=== PATIENT | male | born 1960 | race African-American/Black ===

== ENCOUNTER 2024-03-12 05:45 | Observation (INO) | payer OTHER ==
[2024-03-10 09:20] LABS: BASOPHILS # (AUTO) 0.07 K/uL (0.00-0.20); BASOPHILS % (AUTO) 0.8 % (0.0-5.0); EOSINOPHILS # (AUTO) 0.33 K/uL (0.00-0.70); EOSINOPHILS % (AUTO) 3.6 % (0.0-8.0); HEMATOCRIT 38.4 % (42-54); IMMATURE GRANULOCYTE ABSOLUTE 0.05 K/uL (0-1); LYMPHOCYTES # (AUTO) 2.8 K/uL (1.0-4.8); LYMPHOCYTES % (AUTO) 30.4 % (21.0-51.0); MEAN CORPUSCULAR HEMOGLOBIN 31.3 pg (27.0-33.0); MEAN CORPUSCULAR HGB CONC 34.1 g/dL (32.0-36.0); MEAN CORPUSCULAR VOLUME 91.9 fL (79-99); MONOCYTES # (AUTO) 0.7 K/uL (0.1-1.0); MONOCYTES % (AUTO) 7.5 % (3.0-13.0); NEUTROPHILS # (AUTO) 5.2 K/uL (1.8-7.7); NEUTROPHILS % (AUTO) 57.2 % (40.0-77.0); PLATELET COUNT (AUTO) 162 K/uL (130-400); RED BLOOD CELL COUNT(AUTO) 4.18 MIL/uL (4.50-6.20); RED CELL DISTRIBUTION WIDTH 15.2 % (11.0-15.5); WHITE BLOOD COUNT (AUTO) 9.1 K/uL (4.8-10.8)
[2024-03-10 09:29] LABS: CREATININE 1.4 mg/dL (0.5-1.3); POTASSIUM 4.2 mmol/L (3.5-5.1)
[2024-03-10 09:30] LABS: INR 1.02 (0.85-1.15)
[2024-03-10 09:31] LABS: PARTIAL THROMBOPLASTIN TIME 31.1 SEC (26.3-35.5)
[2024-03-10 10:01] VITALS: BP 155/67; PULSE 62; RESP 16
[~2024-03-12] VITALS: Ht 180.3 cm; Wt 153.8 kg
[2024-03-12] VITALS (25 sets, daily range): BP systolic 118–176; BP diastolic 57–104; PULSE 57–79; RESP 12–20; O2SAT 98–100
[~2024-03-12 05:45] MED LIST: AEC81 PO; APIX5TAB PO; ATOR10 PO; DRON400T7 PO; FURO20TA4 PO; GARLIQUE PO; HYDR-4068 PO; LOSA50TA64 PO; METF-444 PO; METH-387 PO; METO25TA6 PO; MULT1CAP57 PO; SPIR25TA6 PO; TADA5TAB13 PO; TERA10CA4 PO
[2024-03-12] MEDS: 0.9%NACL 1000ML 1,000 ML IV ONE (06:22)
[2024-03-12] MEDS ORDERED: MIDAZOLAM HCL 1 MG/ML 2ML VIAL ONE (06:55)
[2024-03-12] MEDS ORDERED: PROPOFOL 10 MG/ML 20ML VIAL IV ONE ×2 (06:55→07:50)
[2024-03-12] MEDS ORDERED: ROCURONIUM BROMIDE 10MG/1ML 5ML VL ONE (06:56)
[2024-03-12] MEDS ORDERED: FENTANYL CITRATE PF 50 MCG/1 ML 2ML VIAL ONE ×3 (06:56→12:40)
[2024-03-12] MEDS ORDERED: HEPARIN 10,000 UNIT/10ML (1,000 UNIT/ML) VIAL ONE ×2 (07:21→08:40)
[2024-03-12] MEDS ORDERED: LIDOCAINE HCL 1% 20 ML VIAL ONE (07:21)
[2024-03-12] MEDS ORDERED: PHENYLEPHRINE HCL 10 MG/ML 1ML VIAL IV ONE ×2 (07:25→11:05)
[2024-03-12] MEDS ORDERED: PROTAMINE SULFATE 10 MG/ML 5 ML VIAL ONE (11:21)
[2024-03-12] MEDS ORDERED: EPHEDRINE SULFATE 50 MG/ML AMPULE ONE (12:20)
[2024-03-12] MEDS ORDERED: ONDANSETRON 4MG INJ ONE (12:40)
[2024-03-12] MEDS ORDERED: SUGAMMADEX SODIUM 200 MG/2 ML VIAL IV ONE (12:43)
[2024-03-12] MEDS: ONDANSETRON 4MG INJ ONE (13:45)
[2024-03-12] MEDS: MEPERIDINE-PF 25 MG/ML SYG ONE (13:46)
[2024-03-12] MEDS ORDERED: HYDROCODONE/ACETAMINOPHEN 10/325 MG TAB PO PRN (15:00)
[2024-03-12] MEDS: SUCRALFATE 1 GM TABLET PO SCH (15:47)
[2024-03-12] MEDS: PANTOPRAZOLE 40 MG TAB DR PO ONE (15:47)
[2024-03-12] MEDS: HYDRALAZINE 20MG/ML VIAL IV PRN (17:08)
[2024-03-12] MEDS: ATORVASTATIN 20 MG TABLET PO SCH (20:08)
[2024-03-12] MEDS: ASPIRIN 81 MG EC TAB PO SCH (20:09)
[2024-03-12] MEDS: APIXABAN 5 MG TABLET PO SCH (20:09)
[2024-03-12] MEDS: DRONEDARONE HYDROCHLORIDE 400 MG TABLET PO SCH (20:09)
[2024-03-12] MEDS: METOPROLOL TARTRATE 25 MG TAB PO SCH (20:09)
[2024-03-12] MEDS: TERAZOSIN 5MG CAP PO SCH (20:09)
[2024-03-12] MEDS: METFORMIN HCL 500 MG TABLET PO SCH (20:10)
[2024-03-12] MEDS: TERAZOSIN 5MG CAP ONE (21:10)
[2024-03-12] MEDS: DILTIAZEM 125 MG/25 ML INJ 125 MG in 0.9%NACL 100ML 100 ML IV PRN (22:13)
[2024-03-13 00:08] VITALS: BP 101/63; PULSE 65; RESP 18
[2024-03-13 03:51] VITALS: BP 124/77; PULSE 93; RESP 20
[2024-03-13] MEDS: FUROSEMIDE 20 MG TABLET PO SCH (07:58)
[2024-03-13] MEDS: PANTOPRAZOLE 40 MG TAB DR PO SCH (07:58)
[2024-03-13] MEDS: LOSARTAN 50 MG TABLET PO SCH (07:58)
[2024-03-13] MEDS: SPIRONOLACTONE 25 MG TAB PO SCH (07:58)
[2024-03-13 08:05] VITALS: O2SAT 100
[2024-03-13 08:14] VITALS: BP 109/59; PULSE 69; RESP 18
[2024-03-13] MEDS: METHIMAZOLE 10 MG TAB PO SCH (09:44)
[2024-03-13] MEDS ORDERED: SUCR1TAB2 PO (10:23)
[2024-03-13] MEDS ORDERED: PANT40TA55 PO (10:23)
== END 2024-03-13 12:34 | disposition home or self-care (01) ==
LOC: DAH 05:45 → DAHIP 05:46 → DAH 05:46 → 2AH 14:12
PROVIDERS: ADMIT Internal Medicine Cardiovascular Disease; ATTEND Internal Medicine Cardiovascular Disease
DX: I48.0 Paroxysmal atrial fibrillation (principal); E66.01 Morbid (severe) obesity due to excess calories; G47.30 Sleep apnea, unspecified; I13.0 Hypertensive heart and chronic kidney disease with heart failure and stage 1 through stage 4 chronic kidney disease, or unspecified chronic kidney disease; E11.22 Type 2 diabetes mellitus with diabetic chronic kidney disease; N18.9 Chronic kidney disease, unspecified; I50.9 Heart failure, unspecified; Z79.899 Other long term (current) drug therapy
CPT/HCPCS: 80048; 85025; 85610; 85730; 36415; 93005 ×4; 93656; 93657 ×2; 96365; 96366 ×2; 96375; 85347 ×9; 82948 ×2; A4344; C1769; C1894 ×3; C1732 ×2; C1893; A4215 ×2; C1731; A4649 ×2; G0378 ×24; J3010 ×3; J7030; J3490 ×3; J2720; J0360; J1644 ×3; J2250; J2704 ×2; J2405 ×2; J2175; J2371 ×2; A4223 ×3; A4222; A4221; A4663; A4216; A4606; 93655